=== PATIENT | female | born 1955 | race Caucasian/White ===

== ENCOUNTER 2017-12-09 14:31 | Emergency (ER) | payer OTHER ==
[~2017-12-09] VITALS: Ht 165.1 cm; Wt 122.3 kg
[~2017-12-09 14:31] MED LIST: ATROVENT H200 INHALA IH; NAPROXEN500 MG PO; PROAIR HFA8.5 GM IH; PROZAC20 MG PO; SYMBICORT60 INHALAT IH
[2017-12-09 17:58] VITALS: BP 151/96
== END 2017-12-09 17:59 | disposition home or self-care (01) ==
LOC: EME 14:31
DX: S89.92XA Unspecified injury of left lower leg, initial encounter (principal); M25.562 Pain in left knee; X50.9XXA Other and unspecified overexertion or strenuous movements or postures, initial encounter; Y93.89 Activity, other specified; Y99.0 Civilian activity done for income or pay; J45.909 Unspecified asthma, uncomplicated; F32.9 Major depressive disorder, single episode, unspecified
CPT/HCPCS: 73564; 99281; 99283